=== PATIENT | female | born 1940 | race Caucasian/White ===

== ENCOUNTER 2017-11-21 08:49 | Observation (INO) ==
[2017-11-21 09:22] LABS: Basophils % 0.5 % (0.1-2.0); Eosinophils # 0.1 K/mm3 (0.0-0.4); Eosinophils % 1.9 % (0.1-12.0); Hematocrit 40.3 % (37.0-47.0); Hemoglobin 13.5 g/dL (12.2-16.2); Lymphocytes # 2.4 K/mm3 (0.7-4.5); Lymphocytes % 35.2 K/mm3 (10-50); Mean Corpuscular HGB Conc 33.4 g/dL (31.8-35.4); Mean Corpuscular Hemoglobin 29.8 pg (27.0-31.2); Mean Corpuscular Volume 89.4 fl (81-99); Mean Platelet Volume 7.3 fl (7.4-10.4); Monocytes # 0.3 K/mm3 (0.1-1.0); Monocytes % 4.6 % (1.7-9.3); Neutrophils % 57.8 % (37.0-80.0); Platelet Count 254 K/mm3 (142-424); Red Blood Count 4.51 M/mm3 (4.20-5.40); Red Cell Distribution Width 12.8 % (11.5-17.5); White Blood Count 6.9 K/mm3 (4.8-10.8)
[2017-11-21 09:34] LABS: Alanine Aminotransferase 18 U/L (12-78); Albumin Level 3.6 gm/dL (3.4-5.0); Albumin/Globulin Ratio 0.9 (1.1-1.8); Alkaline Phosphatase 57 U/L (46-116); Anion Gap 9.8 mEq/L (5-15); Aspartate Amino Transferase 17 U/L (15-37); Bilirubin,Total 0.8 mg/dL (0.2-1.0); Blood Urea Nitrogen 11 mg/dL (7-18); Carbon Dioxide 27 mmol/L (21.0-32.0); Chloride 104 mmol/L (98-107); Globulin 3.8 gm/dl (1.3-3.2); Glucose 120 mg/dL (74-106); Potassium 3.8 mmoL/L (3.5-5.1); Sodium 137 mmol/L (136-145); Total Protein,Serum 7.4 gm/dL (6.4-8.2)
--- NOTE | 2017-11-21 09:36 | Emergency Department Note ---
ED Disposition Clinical Impression: LBBB (left bundle branch block), Chest pain, Cholelithiasis, Splenic artery aneurysm, Compression fracture, Left against medical advice Disposition: Home, Self-Care Condition on Discharge: Fair - Critical Care Critical Care Time: No Attestation: On 11/21/17, the high probability of a clinically significant, sudden or life threatening deterioration of the following system(s) required my full and direct attention, intervention and personal management. The time I documented below is in addition to time spent performing reported procedures but includes the following listed in this critical care notation. Medical Decision Making - Josh Inquiry Pt receiving controlled substance: No Josh was queried for this patient: No Vital Signs: 11/21/17 08:59 11/21/17 09:38 11/21/17 09:58 Temperature 98.1 F Temperature Source Oral Pulse Rate 86 Pulse Rate [Right Brachial] 101 H 85 Respiratory Rate 18 18 Blood Pressure [Right Arm] 180/110 141/82 Blood Pressure Mean [Right Arm] 133 101 Blood Pressure Source [Right Arm] Automatic Cuff Automatic Cuff Blood Pressure Position [Right Arm] Sitting Sitting 02 Sat by Pulse Oximetry 94 L 97 Oxygen Delivery Method Room Air Room Air 11/21/17 10:20 11/21/17 11:07 Temperature Temperature Source Pulse Rate Pulse Rate [Right Brachial] 78 80 Respiratory Rate 16 Blood Pressure [Right Arm] 138/80 138/78 Blood Pressure Mean [Right Arm] 99 98 Blood Pressure Source [Right Arm] Manual Cuff/ Doppler Automatic Cuff Blood Pressure Position [Right Arm] Supine 02 Sat by Pulse Oximetry 98 97 Oxygen Delivery Method Room Air Room Air - Lab Data Lab Results 11/21/17 09:00: WBC 6.9, RBC 4.51, Hgb 13.5, Hct 40.3, MCV 89.4, MCH 29.8, MCHC 33.4, RDW 12.8, Plt Count 254, MPV 7.3 L, Neut % (Auto) 57.8, Lymph % (Auto) 35.2, [place] % (Auto) 4.6, Eos % (Auto) 1.9, Baso % (Auto) 0.5, Neut # (Auto) 4.0 , Lymph # (Auto) 2.4, [place] # (Auto) 0.3, Eos # (Auto) 0.1, Baso # (Auto) 0.0 11/21/17 09:00: Sodium 137, Potassium 3.8, Chloride 104, Carbon Dioxide 27, Anion Gap 9.8, BUN 11, Creatinine 0.60, Estimated Creat Clear 68, Estimated GFR 97, Est GFR ( Amer) 118, Glucose 120 H, Calcium 9.0, Total Bilirubin 0.8 , AST 17, ALT 18, Alkaline Phosphatase 57, Troponin I < 0.02, Total Protein 7.4 , Albumin 3.6, Globulin 3.8 H, Albumin/Globulin Ratio 0.9 L 11/21/17 09:00: Magnesium 2.1 11/21/17 09:00: D-Dimer 548 H* 11/21/17 09:00: B-Natriuretic Peptide 21 11/21/17 09:15: Specimen Source right radial, O2 % 21, ABG pH 7.44, ABG pCO2 36.5, ABG pO2 74.1 L, ABG HCO3 24.3, ABG Total CO2 25.5, ABG O2 Saturation 96, ABG Base Excess 0.2, Dayday Test acceptable Result diagrams: 11/21/17 09:00 11/21/17 09:00 Orders (Tests/Meds): ED MEDICATIONS Generic Name Dose Route Start Last Admin Trade Name Freq PRN Reason Stop Dose Admin Nitroglycerin 0.4 mg 11/21/17 09:05 11/21/17 09:33 Nitrostat 0.4mg Sl Tablet SL 12/21/17 09:04 0.4 mg [id number] PRN Administration Chest Pain Discontinued Medications Generic Name Dose Route Start Last Admin Trade Name Freq PRN Reason Stop Dose Admin Albuterol/Ipratropium 3 ml 11/21/17 09:36 11/21/17 09:37 Duoneb 3ml Neb IH 11/21/17 09:37 3 ml ONCE ONE Administration Aspirin 324 mg 11/21/17 09:05 11/21/17 09:33 Aspirin 81mg Chewable Tablet PO 11/21/17 09:06 324 mg ONCE ONE Administration Iopamidol 75 ml 11/21/17 11:43 11/21/17 11:43 [id number]-[id number]; 75ml Vial IV 11/21/17 11:44 75 ml ONCE ONE Administration Nitroglycerin 0.5 gm 11/21/17 10:32 11/21/17 11:14 Nitroglycerin 1 Inch Oint Udp TD 11/21/17 10:33 0.5 gm ONCE ONE Administration Sodium Chloride 10 ml 11/21/17 11:43 11/21/17 11:43 Rad-Saline Flush 10ml Syringe IV 11/21/17 11:44 10 ml ONCE ONE Administration - ECG Data Tracing #1 Normal sinus rhythm left bundle branch block baseline artifact no old EKG for comparison. ECG initial impression date: 11/21/17 ECG initial impression time: 09:00 Medical Decision Narrative: I met with the patient and explained to her her EKG and laboratory findings. She told me that she is aware that she had an old left bundle branch block. She was hesitant to obtain a CT chest to rule out PE so I discussed with her leaving AGAINST MEDICAL ADVICE and she often. The patient started having relief of her pain after starting the nitroglycerin. MPRESSION: No evidence of pulmonary embolism. . Negative CT chest. No acute pathology Lungs clear no active disease. \ Incidental findings:: ... Cholelithiasis incidentally noted .... Also incidental small 12 mm splenic artery aneurysm which will benefit from interval follow-up. ... Subtle loss of height T8 with mild concave endplates may reflect old compression deformity. Not recent or acute The patient chest pressure was relieved with nitroglycerin paste, discussed with her the above CT findings and recommended admission for further cardiology workup. The patient requested to be discharged aware of the risks of cardiac arrest and . Chest Pain HPI - General Chief Complaint: Chest Pain Stated Complaint: reaction of meds Time Seen by Provider: 11/21/17 09:00 Mode of Arrival: Ambulatory Limitations: No Limitations Description of Symptoms (Recalled from ER Triage Doc. by RN): pt has a uti and has been placed on macrobid. pt states 1st dose was fine, but after 2nd dose she began noticing a pressure in her chest and a dizziness that was different ; denies soa at this time. no previous cardiac history. no previous lung history. - History of Present Illness HPI narrative: 77 years old white female with history of diverticulosis and a UTI. She is visiting from [facility] when she developed symptoms of urinary tract infection, she was seen in the urgent treatment care yesterday and was prescribed Macrobid. She states that after taking the second dose she developed chest pressure rated 6/10 and shortness of breath, symptoms continued until this morning so she decided to come to the ED. he denies syncope palpitations nausea vomiting diarrhea fever or chills. She is allergic to multiple antibiotics including Cipro and Bactrim. Last antibiotic she tolerated was CEPHALEXIN. Her niece who works in the ER cold and could not reported the patient that experience of palpitations started 10 PM and continue with 10 this morning she is anxious to go back to [place] and her next flight is in 3 more days. The patient denied having palpitation. MD complaint: chest pain Onset (ago): hour(s) (11 HOURS) Duration: constant Activity at onset: during rest Pain location: substernal Severity: moderate Severity scale (1-10): 6 Quality: dull Pain radiation: none Relieving factors: nothing Exacerbating factors: nothing Treatments prior to or on arrival for Cardiac Chest Pain: none - Related Data Home Medications Medication Instructions Recorded Confirmed Alendronate Sodium [Fosamax] 70 mg PO WEEKLY 11/20/17 11/20/17 Levothyroxine Sodium 100 mg PO DAILY 11/20/17 11/20/17 [Levothyroxine 100mcg (0.1MG) Tab] Oxybutynin Chloride [Ditropan Xl] 15 mg PO DAILY 11/20/17 11/20/17 Previous Rx's Medication Instructions Recorded Nitrofurantoin Monohyd/M-Cryst 100 mg PO BID #14 cap 11/20/17 [Macrobid 100 mg Capsule] Phenazopyridine HCl [Pyridium 200 pow PO TID #6 tab 11/20/17 200mg Tablet] Allergies Allergy/AdvReac Type Severity Reaction Status Date / Time shellfish derived Allergy Verified 11/20/17 11:04 [facility] History I have reviewed the patient's past medical history: Yes Medical History: Reports:: Cancer (hx breast and skin cancer) Laterality Cases: Bilateral: Total Hip Replacement - Social History Educational Level: Completed High School Smoking Status: Never smoker Alcohol Intake: never - Psychiatric History Expresses thoughts of harming self/others: None Suicide Plan Description: No Plan ROS Obtained: Yes All systems reviewed & no additional complaints Physical Exam - General General appearance: alert, in no apparent distress - Head Head exam: atraumatic, normocephalic, normal inspection - Eye Eye exam: Present: normal appearance, PERRL, EOMI - ENT ENT exam: Present: normal exam, normal oropharynx, mucous membranes moist, TM's normal bilaterally, normal external ear exam - Neck Neck exam: Present: normal inspection, full ROM, trachea midline. Absent: meningismus, lymphadenopathy - Chest Chest inspection: Present: normal inspection, symmetric chest wall rise. Absent : tenderness - Respiratory Respiratory exam: Present: normal lung sounds bilaterally. Absent: respiratory distress - Cardiovascular Cardiovascular exam: Present: regular rate, normal rhythm. Absent: JVD - Abdominal Exam Abdominal exam: Present: soft, normal bowel sounds. Absent: distention, tenderness, guarding, rebound, rigidity - Extremities Exam Extremities exam: Present: normal inspection, full ROM, normal capillary refill. Absent: calf tenderness - Back Exam Back exam: Present: normal inspection. Absent: tenderness - Neurological Exam Neurological exam: Present: alert, oriented X3 - Psychiatric Psychiatric exam: Present: normal affect, normal mood - Skin Skin exam: Present: warm, dry, intact, normal color - Lymphatic Lymphatic Findings: no adenopathy
[2017-11-21 09:51] LABS: ABG Base Excess 0.2 mmol/L (-2.4-2.3); ABG HCO3 24.3 mmhg (22.0-26.0); ABG Oxygen Saturation 96 % (90-100); ABG PCO2 36.5 mmhg (35.0-45.0); ABG PH 7.44 mmol/L (7.35-7.45); ABG PO2 74.1 mmhg (80-100); ABG TCO2 25.5 mmhg (23-27)
[2017-11-21 09:53] LABS: Allen's Test acceptable; Oxygen 21 %
--- NOTE | 2017-11-21 14:57 | Pharmacy Consult Notes ---
[facility] Pharmacy VTE Monitoring - Patient Demographics Admission date: 11/21/17 Report Date: 11/21/17 Time: 14:57 Allergies/Adverse Reactions: Patient Allergies shellfish derived Allergy (Verified 11/20/17 11:04) Height: 1.68 m Weight: 89.811 kg Patient Problems: Current Active Problems LBBB (left bundle branch block) (Acute) Chest pain (Acute) Cholelithiasis (Acute) Splenic artery aneurysm (Acute) Compression fracture (Acute) Left against medical advice (Acute) - VTE Risk Labs: VTE Related Lab Results Hgb 13.5 g/dL (12.2-16.2) 11/21/17 09:00 Hct 40.3 % (37.0-47.0) 11/21/17 09:00 Plt Count 254 K/mm3 (142-424) 11/21/17 09:00 BUN 11 mg/dL (7-18) 11/21/17 09:00 Creatinine 0.60 mg/dL (0.55-1.02) 11/21/17 09:00 Estimated Creat Clear 68 mL/min (0-300) 11/21/17 09:00 - Prophylaxis VTE Prophylaxis Ordered?: Yes Types of VTE Prophylaxis: TEDS Knee High Location of Applied Device: Bilateral Lower Extremeties
[2017-11-22 03:17] LABS: Basophils % 0.4 % (0.1-2.0); Eosinophils # 0.2 K/mm3 (0.0-0.4); Eosinophils % 2.3 % (0.1-12.0); Lymphocytes # 2.2 K/mm3 (0.7-4.5); Mean Corpuscular HGB Conc 34.1 g/dL (31.8-35.4); Mean Corpuscular Hemoglobin 30.3 pg (27.0-31.2); Mean Platelet Volume 7.1 fl (7.4-10.4); Monocytes # 0.4 K/mm3 (0.1-1.0); Monocytes % 5.2 % (1.7-9.3); Neutrophils # 4.3 K/mm3 (1.8-7.8); Neutrophils % 61.1 % (37.0-80.0); Platelet Count 209 K/mm3 (142-424); Red Blood Count 3.93 M/mm3 (4.20-5.40); Red Cell Distribution Width 12.8 % (11.5-17.5)
[2017-11-22 03:24] LABS: Hemoglobin 11.9 g/dL (12.2-16.2)
[2017-11-22 03:40] LABS: Anion Gap 5.6 mEq/L (5-15); Blood Urea Nitrogen 8 mg/dL (7-18); Carbon Dioxide 30 mmol/L (21.0-32.0); Chloride 106 mmol/L (98-107); Chol/HDL Ratio 3.9 (1-3.5); Cholesterol 208 mg/dL (140-200); Glucose 97 mg/dL (74-106); HDL Cholesterol 53 mg/dL (29-89); LDL Cholesterol 138 mg/dL (0-130); Potassium 3.6 mmoL/L (3.5-5.1); Sodium 138 mmol/L (136-145); Triglycerides 85 mg/dL (30-200); VLDL Cholesterol 17 mg/dL (0-40)
--- NOTE | 2017-11-22 07:37 | History & Physical Report ---
*Admission Date: 11/21/17 <Anya Tavera - 11/22/17 08:17> *Chief complaint: Chest pressure <Anya Tavera 11/22/17 08:17> *History of present illness: Ms Holder is a 77-year-old white female who is visiting family. She was diagnosed with a UTI and started on Macrobid on Wednesday11/20/2017. Patient states after taking her antibiotic Wednesday evening and again Wednesday morning she developed chest pressure that was concerning to her and presented to the emergency department for evaluation. She has a chronic left bundle branch block but has not had any kind of cardiac workup in the last few years. Patient denies any exertional symptoms or shortness of breath recently. She is a non-smoker, not a diabetic and does not take medicine for high blood pressure or hyperlipidemia. Due to her complaint of chest pain she was given nitroglycerin and aspirin in the ER but without significant improvement. Symptoms slowly resolved over a long period of time and after nitroglycerin paste was placed. Due to her left bundle branch block and chest pressure she was admitted overnight for observation. Patient is anxious to get back to [place] to her son who has a history of a kidney transplants. Cardiac enzymes have returned normal overnight. No arrhythmias were noted on telemetry. Patient does have a headache from the nitroglycerin. Cardiology was consulted for evaluation and recommendations. This a.m. patient states that she has had no further chest discomfort. She denies shortness of breath. She has ambulated to the bathroom without difficulty. She is n.p.o. for possible cardiac interventions. She also states that she has trouble with anxiety and became anxious when she had this chest pain. <LiangGennaAnya 11/22/17 09:23> [place] History Medical History: Reports:: Cancer (hx breast and skin cancer) Denies:: Atherosclerotic Heart Disease, Chronic Obstructive Pulmonary Disease (COPD), Cerebrovascular Accident, Diabetes Mellitus Type 1, Diabetes Mellitus Type 2, Gastroesophageal Reflux Disease(GERD), MRSA, Palpitations < LiangAnya 11/22/17 09:23> Other Medical History: Reports: Hypothyroidism <LiangAnya - 11/22/17 09:31 > Laterality Cases: Bilateral: Total Hip Replacement <Anya Tavera 11/22/17 08:17> Other Surgeries: Yes: Hysterectomy-Total <Anya Tavera 11/22/17 08:17> Amputation: No <Anya Tavera 11/22/17 08:17> Fractures: No <Anya Tavera 11/22/17 08:17> Comment: Lumpectomies 2 for breast cancer <Anya Tavera 11/22/17 09:31> - *Social History Educational Level: Completed High School <Anya Tavera 11/22/17 08:17> Smoking Status: Never smoker <Anya Tavera 11/22/17 08:17> Alcohol Intake: never <Anya Tavera 11/22/17 08:17> Occupational Status: retired <Anya Tavera 11/22/17 08:17> Housing: house <Anya Tavera 11/22/17 08:17> Household Members: spouse <Anya Tavera 11/22/17 08:17> - Psychiatric History Expresses thoughts of harming self/others: None <Anya Tavera 11/22/17 08: 17> Suicide Plan Description: No Plan <Anya Tavera 11/22/17 08:17> *Family Hx:: Heart Attack <Anya Tavera 11/22/17 08:17> Review of Systems - Constitutional Denies body ache(s), Denies fever(s) <Anya Tavera 11/22/17 09:31> - *Cardiovascular Reports chest pain, Reports leg swelling, Reports slow heart rate, Denies irregular heart rhythm <LiangAnya 11/22/17 09:31> - *Respiratory Denies chest congestion, Denies cough <LiangAnya 11/22/17 09:31> - *Gastrointestinal Denies abdominal pain, Denies constipation, Denies vomiting blood, Denies nausea , Denies vomiting <LiangAnya 11/22/17 09:31> - *Genitourinary Denies difficulty urinating <LiangAnya 11/22/17 09:31> - *Musculoskeletal Denies abnormal walking <TaveraAnya 11/22/17 09:31> - *Neurologic Denies abnormal walking, Denies seizure-like activity, Denies dizziness, Denies weakness <Anya Tavera - 11/22/17 09:31> Meds Home Medications Medication Instructions Recorded Confirmed Type Alendronate Sodium [Fosamax] 70 mg PO WEEKLY 11/20/17 11/21/17 History Levothyroxine Sodium 100 mcg PO DAILY 11/20/17 11/22/17 History [Levothyroxine 100mcg (0.1MG) Tab] Oxybutynin Chloride [Ditropan Xl] 15 mg PO DAILY 11/20/17 11/21/17 History Nitrofurantoin Monohyd/M-Cryst 100 mg PO BID 11/21/17 11/21/17 History [Macrobid 100 mg Capsule] Phenazopyridine HCl [Pyridium 200 mg PO TID 11/21/17 11/22/17 History 200mg Tablet] <Cristi Pierce - 11/22/17 12:22> Allergies Allergy/AdvReac Type Severity Reaction Status Date / Time shellfish derived Allergy Verified 11/20/17 11:04 <Cristi Pierce - 11/22/17 12:22> Exam Vital signs and Labs for Last 24 Hours: Temp Pulse Resp BP Pulse Ox 98.2 F 85 20 158/59 95 11/22/17 11:40 11/22/17 11:40 11/22/17 11:40 11/22/17 11:40 11/22/17 11:40 Laboratory Results - last 24 hr 11/21/17 14:35: Troponin I < 0.02 11/21/17 20:30: Troponin I < 0.02 11/22/17 03:00: WBC 7.0, RBC 3.93 L, Hgb 11.9 L D, Hct 35.0 L, MCV 89.0, MCH 30.3, MCHC 34.1, RDW 12.8, Plt Count 209, MPV 7.1 L, Neut % (Auto) 61.1, Lymph % (Auto) 31.0, [place] % (Auto) 5.2, Eos % (Auto) 2.3, Baso % (Auto) 0.4, Neut # ( Auto) 4.3, Lymph # (Auto) 2.2, [place] # (Auto) 0.4, Eos # (Auto) 0.2, Baso # (Auto ) 0.0 11/22/17 03:00: Sodium 138, Potassium 3.6, Chloride 106, Carbon Dioxide 30, Anion Gap 5.6, BUN 8 D, Creatinine 0.43 L D, Estimated Creat Clear 68, Estimated GFR 143, Est GFR ( Amer) 173 D, Glucose 97, Troponin I < 0.02 , Triglycerides 85, Cholesterol 208 H, LDL Cholesterol 138 H, VLDL Cholesterol 17, HDL Cholesterol 53, Cholesterol/HDL Ratio 3.9 H <Cristi Pierce - 11/22/17 12:22> Temp Pulse Resp BP Pulse Ox 98.2 F 79 20 155/76 94 L 11/22/17 07:13 11/22/17 07:13 11/22/17 07:13 11/22/17 07:13 11/22/17 07:13 Laboratory Results - last 24 hr 11/21/17 09:00: WBC 6.9, RBC 4.51, Hgb 13.5, Hct 40.3, MCV 89.4, MCH 29.8, MCHC 33.4, RDW 12.8, Plt Count 254, MPV 7.3 L, Neut % (Auto) 57.8, Lymph % (Auto) 35.2, [place] % (Auto) 4.6, Eos % (Auto) 1.9, Baso % (Auto) 0.5, Neut # (Auto) 4.0 , Lymph # (Auto) 2.4, [place] # (Auto) 0.3, Eos # (Auto) 0.1, Baso # (Auto) 0.0 11/21/17 09:00: Sodium 137, Potassium 3.8, Chloride 104, Carbon Dioxide 27, Anion Gap 9.8, BUN 11, Creatinine 0.60, Estimated Creat Clear 68, Estimated GFR 97, Est GFR ( Amer) 118, Glucose 120 H, Calcium 9.0, Total Bilirubin 0.8 , AST 17, ALT 18, Alkaline Phosphatase 57, Troponin I < 0.02, Total Protein 7.4 , Albumin 3.6, Globulin 3.8 H, Albumin/Globulin Ratio 0.9 L 11/21/17 09:00: Magnesium 2.1 11/21/17 09:00: D-Dimer 548 H* 11/21/17 09:00: B-Natriuretic Peptide 11/21/17 09:15: Specimen Source right radial, O2 % 21, ABG pH 7.44, ABG pCO2 36.5, ABG pO2 74.1 L, ABG HCO3 24.3, ABG Total CO2 25.5, ABG O2 Saturation 96, ABG Base Excess 0.2, Dayday Test acceptable 11/21/17 14:35: Troponin I < 0.02 11/21/17 20:30: Troponin I < 0.02 11/22/17 03:00: WBC 7.0, RBC 3.93 L, Hgb 11.9 L D, Hct 35.0 L, MCV 89.0, MCH 30.3, MCHC 34.1, RDW 12.8, Plt Count 209, MPV 7.1 L, Neut % (Auto) 61.1, Lymph % (Auto) 31.0, [place] % (Auto) 5.2, Eos % (Auto) 2.3, Baso % (Auto) 0.4, Neut # ( Auto) 4.3, Lymph # (Auto) 2.2, [place] # (Auto) 0.4, Eos # (Auto) 0.2, Baso # (Auto ) 0.0 11/22/17 03:00: Sodium 138, Potassium 3.6, Chloride 106, Carbon Dioxide 30, Anion Gap 5.6, BUN 8 D, Creatinine 0.43 L D, Estimated Creat Clear 68, Estimated GFR 143, Est GFR ( Amer) 173 D, Glucose 97, Troponin I < 0.02 , Triglycerides 85, Cholesterol 208 H, LDL Cholesterol 138 H, VLDL Cholesterol 17, HDL Cholesterol 53, Cholesterol/HDL Ratio 3.9 H <Anya Tavera - 11/22/17 08:17> I & O for Last 24 hours: Intake & Output 11/20/17 11/21/17 11/22/17 11/23/17 11:59 11:59 11:59 11:59 Intake Total 240 / 240 Balance 240 / 240 Weight 198 lb 198 lb <Cristi Pierce - 11/22/17 12:22> Intake & Output 11/19/17 11/20/17 11/21/17 11/22/17 11:59 11:59 11:59 11:59 Intake Total 240 / 240 Balance 240 / 240 Weight 198 lb 198 lb <Anya Tavera - 11/22/17 08:17> Radiology Reports for the Last 24 Hours: 11/21/2017 chest x-ray IMPRESSION: Nothing definitely acute CT of abdomen 11/21/2017 IMPRESSION: No evidence of pulmonary embolism. . Negative CT chest. No acute pathology Lungs clear no active disease. \ Incidental findings:: ... Cholelithiasis incidentally noted .... Also incidental small 12 mm splenic artery aneurysm which will benefit from interval follow-up. ... Subtle loss of height T8 with mild concave endplates may reflect old compression deformity. Not recent or acute [facility] 11/22/17 09:31> - Constitutional no acute distress <Tavera,[facility] 11/22/17 08:17> Comments: Patient is ambulating in her room. <[facility] 11/22/17 08:17> - *Routine HEENT Exam Head: Present: normocephalic, atraumatic <[facility] 11/22/17 08:17> Eye: Present: PERRL. Absent: conjunctival icterus, periorbital swelling < [facility] 11/22/17 08:17> ENT: Present: mucous membranes moist, oropharynx clear, dentition normal < Replaced By [facility] 11/22/17 08:17> - *Routine Neck Exam Present: supple, full ROM. Absent: carotid bruit, lymphadenopathy, thyromegaly <[facility] 11/[facility]/17 08:17> - Routine Chest/Breast/Axilla Exam Chest wall: Absent: tenderness <Replaced By [facility] 11/22/17 08:17> - *Routine Respiratory Exam Comments: Few bilateral basilar crackles <Replaced By [facility] 11/22/17 08:17> - *Routine Cardiovascular Exam Present: RRR <Replaced By [facility] 11/22/17 08:17> Comments: Monitor showing normal sinus rhythm and 90's <Tavera,[facility] 11/22/17 08:17> - *Routine Abdominal Exam Present: soft, normoactive bowel sounds. Absent: tenderness, distended, guarding <[facility] 11/22/17 08:17> - *Routine Extremities Exam Comments: CLARK's are on. Does have some leg edema bilaterally <[facility] 11/22/17 08:17> - *Routine Neurological Exam Present: alert, oriented X3 <Anya Tavera - 11/22/17 08:17> H&P: Result - Labs Labs: Short CBC 11/22/17 Range/Units 03:00 WBC 7.0 (4.8-10.8) K/mm3 Hgb 11.9 L D (12.2-16.2) g/dL Hct 35.0 L (37.0-47.0) % Plt Count 209 (142-424) K/mm3 [facility] 11/22/17 03:00 Sodium 138 Potassium 3.6 Chloride 106 Carbon Dioxide 30 BUN 8 D Creatinine 0.43 L D Glucose 97 Cardiac Enzymes 11/21/17 11/21/17 11/22/17 Range/Units 14:35 20:30 03:00 Troponin I < 0.02 < 0.02 < 0.02 (0.00-0.06) ng/ml <MinettoCristi - 11/22/17 12:22> Short CBC 11/21/17 11/22/17 Range/Units 09:00 03:00 WBC 6.9 7.0 (4.8-10.8) K/mm3 Hgb 13.5 11.9 L D (12.2-16.2) g/dL Hct 40.3 35.0 L (37.0-47.0) % Plt Count 254 209 (142-424) K/mm3 [facility] 11/21/17 11/22/17 09:00 03:00 Sodium 137 138 Potassium 3.8 3.6 Chloride 104 106 Carbon Dioxide 27 30 BUN 11 8 D Creatinine 0.60 0.43 L D Glucose 120 H 97 Calcium 9.0 Cardiac Enzymes 11/21/17 11/21/17 11/21/17 Range/Units 09:00 14:35 20:30 Troponin I < 0.02 < 0.02 < 0.02 (0.00-0.06) ng/ml 11/22/17 Range/Units 03:00 Troponin I < 0.02 (0.00-0.06) ng/ml Liver Function 11/21/17 Range/Units 09:00 Total Bilirubin 0.8 (0.2-1.0) mg/dL AST 17 (15-37) U/L ALT 18 (12-78) U/L Alkaline Phosphatase 57 (46-116) U/L Albumin 3.6 (3.4-5.0) gm/dL <Anya Tavera - 11/22/17 08:17> Assessment and Plan (1) Chest pain Current visit: Yes Status: Acute Category: Medical Code(s): R07.9 - Chest pain, unspecified (2) LBBB (left bundle branch block) Current visit: Yes Status: Chronic Category: Medical Code(s): I44.7 - Left bundle-branch block, unspecified (3) UTI (urinary tract infection) Current visit: No Status: Acute Qualifiers: Urinary tract infection type: site unspecified Hematuria presence: with hematuria Qualified Code(s): N39.0 - Urinary tract infection, site not specified; R31.9 - Hematuria, unspecified Category: Medical Code(s): N39.0 - Urinary tract infection, site not specified <Cristi Pierce 11/22/17 12:22> (1) Chest pain Current visit: Yes Status: Acute Category: Medical Code(s): R07.9 - Chest pain, unspecified (2) Cholelithiasis Start time: Current visit: Yes Status: Acute Category: Medical Code(s): K80.20 - Calculus of gallbladder without cholecystitis without obstruction (3) LBBB (left bundle branch block) Current visit: Yes Status: Chronic Category: Medical Code(s): I44.7 - Left bundle-branch block, unspecified (4) Splenic artery aneurysm Current visit: Yes Status: Chronic Category: Medical Code(s): I72.8 - Aneurysm of other specified arteries (5) UTI (urinary tract infection) Current visit: No Status: Acute Qualifiers: Urinary tract infection type: site unspecified Hematuria presence: with hematuria Qualified Code(s): N39.0 - Urinary tract infection, site not specified; R31.9 - Hematuria, unspecified Category: Medical Code(s): N39.0 - Urinary tract infection, site not specified <Anya Tavera - 11/22/17 09:23> - Assessment and plan all Dx Assessment and Plan for all problems:: Saw patient agree with above note. <Cristi Pierce 11/22/17 12:22> Cardiology has seen the patient with the following assessment and plan: 1. Discontinue nitroglycerin paste due to headache and normal troponins. 2. Due to left bundle branch block and chest pain, recommend stress testing but this could be done as an outpatient. 3. Will obtain an echocardiogram today to evaluate left ventricular ejection fraction and if normal patient could be discharged home for outpatient follow- up and evaluation. <Anya Tavera - 11/22/17 09:31>
--- NOTE | 2017-11-22 08:33 | Consult Report ---
History of Present Illness Consult date: 11/22/17 Requesting physician: Cristi Pierce Consult reason: chest pain Chief complaint: chest pressure Additional Medical History:: 1. Chronic left bundle branch block 2. Family history of coronary artery disease in her sister at age 30 with myocardial infarction. Sister is a smoker. 3. History of anxiety and panic attacks 4. Hypothyroidism History of present illness: 77-year-old white female visiting family was diagnosed with a UTI and started on Macrobid on Wednesday. Patient states after taking her antibiotic Wednesday evening and again Wednesday morning she developed chest pressure that was concerning to her and presented to the emergency department for evaluation. She has a chronic left bundle branch block but has not had any kind of cardiac workup in the last few years. Patient denies any exertional symptoms or shortness of breath recently. She is a non-smoker, not a diabetic and does not take medicine for high blood pressure or hyperlipidemia. Due to her complaint of chest pain she was given nitroglycerin and aspirin in the ER but without significant improvement. Symptoms slowly resolved over a long period of time and after nitroglycerin paste was placed. Due to her left bundle branch block and chest pressure was recommended she stay overnight. Patient is anxious to get back to [place] to her son who has a history of a kidney transplant. Cardiac enzymes have returned normal overnight. No arrhythmias noted on telemetry. Patient does have a headache from the nitroglycerin. Cardiology consulted for evaluation and recommendations. [facility] History Medical History: Reports:: Anxiety, Cancer (hx breast and skin cancer) Denies:: Diabetes Mellitus Type 1, Diabetes Mellitus Type 2, MRSA Laterality Cases: Bilateral: Total Hip Replacement Other Surgeries: Yes: Hysterectomy-Total Amputation: No Fractures: No - *Social History Educational Level: Completed High School Smoking Status: Never smoker Alcohol Intake: never Occupational Status: retired Housing: house Household Members: spouse - Psychiatric History Expresses thoughts of harming self/others: None Suicide Plan Description: No Plan *Family Hx:: Heart Attack Meds Home Medications Medication Instructions Recorded Confirmed Type Alendronate Sodium [Fosamax] 70 mg PO WEEKLY 11/20/17 11/21/17 History Levothyroxine Sodium 100 mcg PO DAILY 11/20/17 11/22/17 History [Levothyroxine 100mcg (0.1MG) Tab] Oxybutynin Chloride [Ditropan Xl] 15 mg PO DAILY 11/20/17 11/21/17 History Nitrofurantoin Monohyd/M-Cryst 100 mg PO BID 11/21/17 11/21/17 History [Macrobid 100 mg Capsule] Phenazopyridine HCl [Pyridium 200 mg PO TID 11/21/17 11/22/17 History 200mg Tablet] Allergies Allergy/AdvReac Type Severity Reaction Status Date / Time shellfish derived Allergy Verified 11/20/17 11:04 Review of Systems - *Cardiovascular Reports chest pain - *Respiratory Denies shortness of breath with activity - *Gastrointestinal Denies abdominal pain Exam Vital signs and Labs for Last 24 Hours: Temp Pulse Resp BP Pulse Ox 98.2 F 79 20 155/76 94 L 11/22/17 07:13 11/22/17 07:13 11/22/17 07:13 11/22/17 07:13 11/22/17 07:13 Laboratory Results - last 24 hr 11/21/17 09:00: WBC 6.9, RBC 4.51, Hgb 13.5, Hct 40.3, MCV 89.4, MCH 29.8, MCHC 33.4, RDW 12.8, Plt Count 254, MPV 7.3 L, Neut % (Auto) 57.8, Lymph % (Auto) 35.2, [place] % (Auto) 4.6, Eos % (Auto) 1.9, Baso % (Auto) 0.5, Neut # (Auto) 4.0 , Lymph # (Auto) 2.4, [place] # (Auto) 0.3, Eos # (Auto) 0.1, Baso # (Auto) 0.0 11/21/17 09:00: Sodium 137, Potassium 3.8, Chloride 104, Carbon Dioxide 27, Anion Gap 9.8, BUN 11, Creatinine 0.60, Estimated Creat Clear 68, Estimated GFR 97, Est GFR ( Amer) 118, Glucose 120 H, Calcium 9.0, Total Bilirubin 0.8 , AST 17, ALT 18, Alkaline Phosphatase 57, Troponin I < 0.02, Total Protein 7.4 , Albumin 3.6, Globulin 3.8 H, Albumin/Globulin Ratio 0.9 L 11/21/17 09:00: Magnesium 2.1 11/21/17 09:00: D-Dimer 548 H* 11/21/17 09:00: B-Natriuretic Peptide 11/21/17 09:15: Specimen Source right radial, O2 % 21, ABG pH 7.44, ABG pCO2 36.5, ABG pO2 74.1 L, ABG HCO3 24.3, ABG Total CO2 25.5, ABG O2 Saturation 96, ABG Base Excess 0.2, Dayday Test acceptable 11/21/17 14:35: Troponin I < 0.02 11/21/17 20:30: Troponin I < 0.02 11/22/17 03:00: WBC 7.0, RBC 3.93 L, Hgb 11.9 L D, Hct 35.0 L, MCV 89.0, MCH 30.3, MCHC 34.1, RDW 12.8, Plt Count 209, MPV 7.1 L, Neut % (Auto) 61.1, Lymph % (Auto) 31.0, [place] % (Auto) 5.2, Eos % (Auto) 2.3, Baso % (Auto) 0.4, Neut # ( Auto) 4.3, Lymph # (Auto) 2.2, [place] # (Auto) 0.4, Eos # (Auto) 0.2, Baso # (Auto ) 0.0 11/22/17 03:00: Sodium 138, Potassium 3.6, Chloride 106, Carbon Dioxide 30, Anion Gap 5.6, BUN 8 D, Creatinine 0.43 L D, Estimated Creat Clear 68, Estimated GFR 143, Est GFR ( Amer) 173 D, Glucose 97, Troponin I < 0.02 , Triglycerides 85, Cholesterol 208 H, LDL Cholesterol 138 H, VLDL Cholesterol 17, HDL Cholesterol 53, Cholesterol/HDL Ratio 3.9 H I & O for Last 24 hours: Intake & Output 11/19/17 11/20/17 11/21/17 11/22/17 11:59 11:59 11:59 11:59 Intake Total 240 / 240 Balance 240 / 240 Weight 198 lb 198 lb - *Routine Neck Exam Absent: JVD, carotid bruit - *Routine Respiratory Exam Present: CTA bilaterally - *Routine Cardiovascular Exam Present: RRR, murmur. Absent: gallop, rubs - *Routine Abdominal Exam Present: soft. Absent: tenderness - *Routine Extremities Exam Absent: edema - *Routine Neurological Exam Present: alert, oriented X3, moving all extremities Assessment and Plan (1) Chest pain Current visit: Yes Status: Acute Category: Medical Code(s): R07.9 - Chest pain, unspecified (2) LBBB (left bundle branch block) Current visit: Yes Status: Chronic Category: Medical Code(s): I44.7 - Left bundle-branch block, unspecified (3) UTI (urinary tract infection) Current visit: No Status: Acute Qualifiers: Urinary tract infection type: site unspecified Hematuria presence: with hematuria Qualified Code(s): N39.0 - Urinary tract infection, site not specified; R31.9 - Hematuria, unspecified Category: Medical Code(s): N39.0 - Urinary tract infection, site not specified - Assessment and plan all Dx Assessment and Plan for all problems:: 1. Discontinue nitroglycerin paste due to headache and normal troponins. 2. Due to left bundle branch block and chest pain, would recommend stress testing but this could be done as an outpatient. 3. Will obtain an echocardiogram today to evaluate left ventricular ejection fraction and if normal patient could be discharged home for outpatient follow- up and evaluation.
--- NOTE | 2017-11-22 18:33 | Progress Note ---
Internal Medicine - PN: Subj *Date: 11/22/17 *Time: 18:34 Interval history: Patient had left heart cath today that was normal. She is ready to be discharged now. Exam Vital signs and Labs for Last 24 Hours: Temp Pulse Resp BP Pulse Ox 98.2 F 80 20 158/59 100 11/22/17 11:40 11/22/17 16:00 11/22/17 11:40 11/22/17 11:40 11/22/17 13:40 Laboratory Results - last 24 hr 11/21/17 20:30: Troponin I < 0.02 11/22/17 03:00: WBC 7.0, RBC 3.93 L, Hgb 11.9 L D, Hct 35.0 L, MCV 89.0, MCH 30.3, MCHC 34.1, RDW 12.8, Plt Count 209, MPV 7.1 L, Neut % (Auto) 61.1, Lymph % (Auto) 31.0, [place] % (Auto) 5.2, Eos % (Auto) 2.3, Baso % (Auto) 0.4, Neut # ( Auto) 4.3, Lymph # (Auto) 2.2, [place] # (Auto) 0.4, Eos # (Auto) 0.2, Baso # (Auto ) 0.0 11/22/17 03:00: Sodium 138, Potassium 3.6, Chloride 106, Carbon Dioxide 30, Anion Gap 5.6, BUN 8 D, Creatinine 0.43 L D, Estimated Creat Clear 68, Estimated GFR 143, Est GFR ( Amer) 173 D, Glucose 97, Troponin I < 0.02 , Triglycerides 85, Cholesterol 208 H, LDL Cholesterol 138 H, VLDL Cholesterol 17, HDL Cholesterol 53, Cholesterol/HDL Ratio 3.9 H 11/22/17 10:13: Activated Clotting Time 281 H* 11/22/17 10:19: Activated Clotting Time 235 H* I & O for Last 24 hours: Intake & Output 11/20/17 11/21/17 11/22/17 11/23/17 11:59 11:59 11:59 11:59 Intake Total 600 / 600 960 / 960 Output Total 750 / 750 Balance 600 / 600 210 / 210 Weight 198 lb 198 lb Narrative: EKG repeated due to tachycardia. It is unchanged from previous EKG and shows a NSR with rate of 100 with a LBBB. - Constitutional no acute distress (conversant) Assessment and Plan (1) Chest pain Current visit: Yes Status: Resolved Category: Medical Code(s): R07.9 - Chest pain, unspecified (2) LBBB (left bundle branch block) Current visit: Yes Status: Chronic Category: Medical Code(s): I44.7 - Left bundle-branch block, unspecified (3) UTI (urinary tract infection) Current visit: No Status: Acute Qualifiers: Urinary tract infection type: site unspecified Hematuria presence: with hematuria Qualified Code(s): N39.0 - Urinary tract infection, site not specified; R31.9 - Hematuria, unspecified Category: Medical Code(s): N39.0 - Urinary tract infection, site not specified - Assessment and plan all Dx Assessment and Plan for all problems:: OK to discharge now, she will f/u with her primary MD in [place] next week.
[2017-11-22 19:32] VITALS: BP 144/67
--- NOTE | 2017-11-22 22:19 | Discharge Summary ---
General - General Admission date:: 11/21/17 Discharge date: 11/22/17 HPI HPI: Ms Holder is a 77-year-old white female who is visiting family. She was diagnosed with a UTI and started on Macrobid on Wednesday11/20/2017. Patient states after taking her antibiotic Wednesday evening and again Wednesday morning she developed chest pressure that was concerning to her and presented to the emergency department for evaluation. She has a chronic left bundle branch block but has not had any kind of cardiac workup in the last few years. Patient denies any exertional symptoms or shortness of breath recently. She is a non-smoker, not a diabetic and does not take medicine for high blood pressure or hyperlipidemia. Due to her complaint of chest pain she was given nitroglycerin and aspirin in the ER but without significant improvement. Symptoms slowly resolved over a long period of time and after nitroglycerin paste was placed. Due to her left bundle branch block and chest pressure she was admitted overnight for observation. Patient is anxious to get back to [place] to her son who has a history of a kidney transplants. Cardiac enzymes have returned normal overnight. No arrhythmias were noted on telemetry. Patient does have a headache from the nitroglycerin. Cardiology was consulted for evaluation and recommendations. Hospital Course Hospital Course: Cardiology saw the patient. They discontinued nitroglycerin paste due to headache and normal troponins. Due to left bundle branch block and chest pain, they initially recommended stress testing. They ordered an echocardiogram which showed a reduced EF with apical and septal wall motion abnormalities. She did have a history of radiation therapy for breast cancer about 25 yrs ago. There is an increased likelihood of CAD in patients that have received radiation therapy and with her abnormal Echo and LBBB on EKG, they decided she should have a LHC. Risks, benefits and procedure were explained to the patient. She had the left heart cath and it was normal. She was stable to be discharged and will f/u with her PCP in [place]. Objective Vital signs: Temp Pulse Resp BP Pulse Ox 97.9 F 72 18 144/67 96 11/22/17 19:31 11/22/17 19:31 11/22/17 19:31 11/22/17 19:31 11/22/17 19:31 Narrative: - Constitutional no acute distress Comments: Patient is ambulating in her room. - *Routine HEENT Exam Head: Present: normocephalic, atraumatic Eye: Present: PERRL. Absent: conjunctival icterus, periorbital swelling ENT: Present: mucous membranes moist, oropharynx clear, dentition normal - *Routine Neck Exam Present: supple, full ROM. Absent: carotid bruit, lymphadenopathy, thyromegaly - Routine Chest/Breast/Axilla Exam Chest wall: Absent: tenderness - *Routine Respiratory Exam Comments: Few bilateral basilar crackles - *Routine Cardiovascular Exam Present: RRR Comments: Monitor showing normal sinus rhythm and 90's - *Routine Abdominal Exam Present: soft, normoactive bowel sounds. Absent: tenderness, distended, guarding - *Routine Extremities Exam Comments: CLARK's are on. Does have some leg edema bilaterally - *Routine Neurological Exam Present: alert, oriented X3 Results Labs on day of discharge: Labs from last 24 hours 11/22/17 11/22/17 11/22/17 10:19 10:13 03:00 WBC RBC Hgb Hct MCV MCH MCHC RDW Plt Count MPV Neut % (Auto) Lymph % (Auto) [place] % (Auto) Eos % (Auto) Baso % (Auto) Neut # (Auto) Lymph # (Auto) [place] # (Auto) Eos # (Auto) Baso # (Auto) Activated Clotting Time 235 H* 281 H* Sodium 138 Potassium 3.6 Chloride 106 Carbon Dioxide 30 Anion Gap 5.6 BUN 8 D Creatinine 0.43 L D Estimated Creat Clear 68 Estimated GFR 143 Est GFR ( Amer) 173 D Glucose 97 Troponin I < 0.02 Triglycerides 85 Cholesterol 208 H LDL Cholesterol 138 H VLDL Cholesterol 17 HDL Cholesterol 53 Cholesterol/HDL Ratio 3.9 H 11/22/17 03:00 WBC 7.0 RBC 3.93 L Hgb 11.9 L D Hct 35.0 L MCV 89.0 MCH 30.3 MCHC 34.1 RDW 12.8 Plt Count 209 MPV 7.1 L Neut % (Auto) 61.1 Lymph % (Auto) 31.0 [place] % (Auto) 5.2 Eos % (Auto) 2.3 Baso % (Auto) 0.4 Neut # (Auto) 4.3 Lymph # (Auto) 2.2 [place] # (Auto) 0.4 Eos # (Auto) 0.2 Baso # (Auto) 0.0 Activated Clotting Time Sodium Potassium Chloride Carbon Dioxide Anion Gap BUN Creatinine Estimated Creat Clear Estimated GFR Est GFR ( Amer) Glucose Troponin I Triglycerides Cholesterol LDL Cholesterol VLDL Cholesterol HDL Cholesterol Cholesterol/HDL Ratio DS: Diagnosis - Discharge Diagnosis (1) Chest pain Status: Resolved (2) LBBB (left bundle branch block) Status: Chronic (3) UTI (urinary tract infection) Status: Acute Discharge Plan - Patient Discharge Instructions ACTIVITY: Continue current activity DIET: continue same diet Additional Instructions: Post heart cath take home instructions. Patient Instructions: DI for Chest Pain - Follow up Plan Unknown provider or service follow up:: 11/22/17 18:37 Patient's primary MD Disposition: Home, Self-[facility] Medications: Home Medications Medication Instructions Recorded Confirmed Type Alendronate Sodium [Fosamax] 70 mg PO WEEKLY 11/20/17 11/21/17 History Levothyroxine Sodium 100 mcg PO DAILY 11/20/17 11/22/17 History [Levothyroxine 100mcg (0.1MG) Tab] Oxybutynin Chloride [Ditropan Xl] 15 mg PO DAILY 11/20/17 11/21/17 History Nitrofurantoin Monohyd/M-Cryst 100 mg PO BID 11/21/17 11/21/17 History [Macrobid 100 mg Capsule] Phenazopyridine HCl [Pyridium 200 mg PO TID 11/21/17 11/22/17 History 200mg Tablet] Prescriptions/Medication Reconciliation: Continue Oxybutynin Chloride [Ditropan Xl] 15 mg PO DAILY Alendronate Sodium [Fosamax] 70 mg PO WEEKLY Phenazopyridine HCl [Pyridium 200mg Tablet] 200 mg PO TID Nitrofurantoin Monohyd/M-Cryst [Macrobid 100 mg Capsule] 100 mg PO BID Levothyroxine Sodium [Levothyroxine 100mcg (0.1MG) Tab] 100 mcg PO DAILY
== END 2017-11-22 19:08 | disposition home or self-care (01) ==
LOC: 2ND 08:49 → UTC 08:49 → 2ND 16:20
PROVIDERS: ADMIT Family Medicine; ATTEND Family Medicine